=== PATIENT | male | born 1960 | race Caucasian/White ===

== ENCOUNTER 2021-11-27 09:46 | Outpatient (CLI) | payer OTHER, SELFPAY ==
[2021-11-27 14:36] LABS: Chloride* 101 mmol/L (96-114); Potassium* 4.2 mmol/L (3.6-5.1); Sodium* 139 mmol/L (135-149)
[2021-11-27 14:38] LABS: Alanine Aminotransferase* 41 U/L (4-50); Carbon Dioxide* 27 mmol/L (20-32); Cholesterol* 138 mg/dL (90-199); Estimated Glomerular Filt Rate 87 ml/min
[2021-11-27 14:39] LABS: Blood Urea Nitrogen* 15 mg/dL (7-30); Calcium* 9.7 mg/dL (8.4-10.6); Glucose* 311 mg/dL (60-115); HDL Cholesterol* 33 mg/dL (>=40); LDL Cholesterol Calculated 32 mg/dL (<100); Triglycerides* 366 mg/dL (40-149)
[2021-11-27 15:01] LABS: PSA Screen* 0.54 ng/mL (0.10-4.00)
== END 2021-11-27 09:47 | disposition home or self-care (01) ==
PROVIDERS: PCP Family Medicine; Visit Provider Family Medicine
DX: Z00.00 Encounter for general adult medical examination without abnormal findings (principal); E78.5 Hyperlipidemia, unspecified; I10 Essential (primary) hypertension; E11.40 Type 2 diabetes mellitus with diabetic neuropathy, unspecified; Z12.5 Encounter for screening for malignant neoplasm of prostate; K44.9 Diaphragmatic hernia without obstruction or gangrene
CPT/HCPCS: 80048; 80061; 84153; 84460